=== PATIENT | male | born 1965 | race Caucasian/White ===

== ENCOUNTER 2018-02-21 10:38 | Outpatient (CLI) | payer OTHER | END 2018-02-21 10:39 | disposition critical access hospital (66) | LOC: EMS 10:38 | PROVIDERS: ATTEND Surgery | DX: R07.9 Chest pain, unspecified (principal); R06.02 Shortness of breath; R20.0 Anesthesia of skin; R42 Dizziness and giddiness; R11.0 Nausea | CPT/HCPCS: A0425; A0427 ==

== ENCOUNTER 2018-02-21 11:02 | Emergency (ER) | payer OTHER ==
[2018-02-21] MEDS ORDERED: MAG HYDROX/AL HYDROX/SIMETH 30 ML UDC PO STA (11:10)
[2018-02-21] MEDS ORDERED: LIDOCAINE VISCOUS 2% 15 ML UDC MM STA (11:10)
--- NOTE | 2018-02-21 11:14 | ED Physician Documentation ---
History of Present Illness - Stated complaint Stated Complaint: CP - Chief complaint Chief Complaint: Cardiac - Additonal information Additional information: hx from pt 52 male hx HTN diet and exercise controlled fhx CAD (dad) smoker walking dog this AM about 9 and developed chest pain that felt like severe heart burn with associated weakness nausea soa and diaphoresis sx subsided with asa and nitro X 1 from EMS but still with milder burning CP hx similar but milder sx with exertion as well has had EKG labs etc but not a stress test yet no travel no leg swelling no fever cough had diarrhea last night Review of Systems Constitutional: reports: Sweats. denies: Fever, Chills Throat: denies: Sore throat Cardiac: reports: Chest pain / pressure Respiratory: reports: Dyspnea GI: reports: Nausea Musculoskeletal: denies: Extremity swelling Endocrine: denies: Easy bruising / bleeding Immunocompromised: denies: Immunocompromised PD PAST MEDICAL HISTORY - Present Medications Home Medications: Ambulatory Orders Medication Instructions Recorded Confirmed No Known Home Medications [No 02/21/18 02/21/18 Known Home Medications] - Allergies Allergies/Adverse Reactions: Allergies Allergy/AdvReac Type Severity Reaction Status Date / Time No Known Drug Allergies Allergy Verified 02/21/18 11:07 PD ED PE NORMAL - Vitals Vital signs reviewed: Yes - General General: Alert and oriented X 3 - Neck Neck: Supple, no meningeal sign - Cardiac Cardiac: RRR - Respiratory Respiratory: No respiratory distress, Clear bilaterally - Abdomen Abdomen: Soft, Non tender - Extremities Extremities: No edema, No calf tenderness / cord - Neuro Neuro: Alert and oriented X 3 Results - Vitals Vitals: Vital Signs - 24 hr 02/21/18 02/21/18 02/21/18 11:04 12:29 12:45 Temperature 36.1 C L 36.5 C Heart Rate 54 L 69 50 L Respiratory 18 30 H 20 Rate Blood Pressure 108/84 H 104/77 117/83 H O2 Saturation 100 100 100 Oxygen O2 Source Nasal cannula - EKG (time done) 1115 Rate: Rate (enter#) (48) Rhythm: NSR [place]: Normal Intervals: Normal CT Ischemia: Normal ST segments 1225 Rate: Rate (enter#) (52) Rhythm: NSR Ischemia: Other (anterior STEMI and hyperacute T waves) Compare to prior EKG: Changed from prior EKG - Labs Labs: Laboratory Tests 02/21/18 02/21/18 02/21/18 11:17 11:17 11:17 WBC 10.3 RBC 4.65 L Hgb 14.3 Hct 42.3 MCV 90.9 MCH 30.8 MCHC 33.9 RDW 13.7 Plt Count 237 MPV 7.9 Neut # 6.5 Lymph # 2.4 [place] # 0.8 Eos # 0.6 Baso # 0.1 Absolute Nucleated RBC 0.00 Nucleated RBC % 0.0 Sodium 135 Potassium 4.1 Chloride 104 Carbon Dioxide 23 Anion Gap 8.0 BUN 9 Creatinine 0.8 Estimated GFR (MDRD) 102 Glucose 106 H Calcium 8.7 Total Bilirubin 0.4 AST 18 ALT 19 Alkaline Phosphatase 57 Troponin I < 0.04 Total Protein 6.4 L Albumin 4.0 Globulin 2.4 Albumin/Globulin Ratio 1.7 Lipase 20 L - Rads (name of study) CXR Radiology: See rad report (no acute process) PD MEDICAL DECISION MAKING - ED course ED course: 52 male with risk factors chest pain with walking dog this AM and milder sx with exertion recently received asa and nitro [employer] and had minimal pain upon arrival EKG # 1 and trop # 1 normal planned to admit for serial CE and echo and stress approx 1220 pt had recurrent pain SOA rpt EKG shows STEMI given another nitro morphine and heparin and stat transfer to [facility] for cath - accepting EMP is Dr Daphne Marrero note clock by nurses station is off so time on transfer forms is also off Departure - Departure Disposition: 02 Transfer Acute Care Hosp Clinical Impression: STEMI (ST elevation myocardial infarction) Qualifiers: Involved coronary artery: unspecified coronary artery Qualified Code(s): I21.3 - ST elevation (STEMI) myocardial infarction of unspecified site Condition: Critical Discharge Date/Time: 02/21/18 13:00
[2018-02-21 11:27] LABS: BASOPHILS # (AUTO) 0.1 10^3/uL (0.0-0.1); BASOPHILS % (AUTO) 0.8 %; EOSINOPHILS # (AUTO) 0.6 10^3/uL (0.0-0.7); EOSINOPHILS % (AUTO) 5.7 %; HGB - HEMOGLOBIN 14.3 g/dL (14.0-18.0); LYMPHOCYTES # (AUTO) 2.4 10^3/uL (1.5-3.5); LYMPHOCYTES % (AUTO) 23.2 %; MEAN CORPUSCULAR HEMOGLOBIN 30.8 pg (27.0-31.0); MEAN CORPUSCULAR HGB CONC 33.9 g/dL (32.0-36.0); MEAN CORPUSCULAR VOLUME 90.9 fL (80.0-94.0); MEAN PLATELET VOLUME 7.9 fL (7.4-11.4); MONOCYTES # (AUTO) 0.8 10^3/uL (0.0-1.0); MONOCYTES % (AUTO) 7.4 %; NEUTROPHILS # (AUTO) 6.5 10^3/uL (1.5-6.6); NEUTROPHILS % (AUTO) 62.9 %; PLT - PLATELET COUNT 237 10^3/uL (130-450); RED BLOOD COUNT 4.65 10^6/uL (4.70-6.10); RED CELL DISTRIBUTION WIDTH 13.7 % (12.0-15.0); WHITE BLOOD COUNT 10.3 x10^3/uL (4.8-10.8)
[2018-02-21 11:38] LABS: ALBUMIN/GLOBULIN RATIO 1.7 (1.0-2.2); BILIRUBIN,TOTAL 0.4 mg/dL (0.2-1.0); CALCIUM 8.7 mg/dL (8.5-10.3); CREATININE 0.8 mg/dL (0.6-1.2); TOTAL PROTEIN 6.4 g/dL (6.7-8.2)
--- NOTE | 2018-02-21 11:40 | XRAY Report ---
EXAM: CHEST RADIOGRAPHY EXAM DATE: 02/21/2018 11:34 AM. CLINICAL HISTORY: Altered mental status. COMPARISON: None. TECHNIQUE: 1 view. FINDINGS: Lungs/Pleura: No focal opacities evident. No pleural effusion. No pneumothorax. Mediastinum: Heart size is normal. Aorta is mildly tortuous. Other: None. IMPRESSION: 1. No acute disease in the chest. [facility] Referring Provider Line: [phone] SITE ID: [id number]
[2018-02-21] MEDS ORDERED: NITROGLYCERIN SL 0.4 MG TABLET SL STA (12:21)
[2018-02-21] MEDS ORDERED: MORPHINE 2 MG/ML SYRINGE IVP STA (12:26)
[2018-02-21] MEDS ORDERED: HEPARIN 25000UNITS/500ML (D5W) 25,000 UNIT/500 ML BAG IV STA (12:27)
[2018-02-21] MEDS ORDERED: HEPARIN 5,000 UNIT/ML VIAL IVP ONE (12:27)
[2018-02-21] MEDS ORDERED: ONDANSETRON 4 MG/2 ML VIAL IVP STA (12:28)
[2018-02-21 12:46] VITALS: BP 117/83
== END 2018-02-21 13:00 | disposition short-term general hospital (02) ==
LOC: EDBD → ED 11:02
DX: I21.3 ST elevation (STEMI) myocardial infarction of unspecified site (principal); I10 Essential (primary) hypertension; Z82.49 Family history of ischemic heart disease and other diseases of the circulatory system
CPT/HCPCS: 36415; 71045; 80053; 83690; 84484; 85025; 93005; 96374; 96375; 96376; 99284; A9270; J2270

== ENCOUNTER 2018-02-21 12:58 | Outpatient (CLI) | payer OTHER | END 2018-02-21 12:59 | disposition short-term general hospital (02) | LOC: EMS 12:58 | PROVIDERS: ATTEND Surgery | DX: R07.9 Chest pain, unspecified (principal) | CPT/HCPCS: A0425; A0427 ==

== ENCOUNTER 2018-08-21 09:12 | Outpatient (CLI) | payer OTHER ==
--- NOTE | 2018-08-21 15:25 | XRAY Report ---
Reason: OCCULT BLOOD IN STOOL Procedure Date: 08/21/2018 Accession Number: [id number] / [id number] Procedure: FL - Barium Enema w/Air CPT Code: FULL RESULT: EXAM: BARIUM ENEMA. EXAM DATE: 08/21/2018 11:28 AM. CLINICAL HISTORY: Occult blood in stool. COMPARISONS: None. TECHNIQUE: Routine double contrast barium enema. Fluoroscopy Time: 3 minutes 20 seconds. Number of Images: 26. FINDINGS: Morphology: Normal distention and anatomy by single contrast technique. Limited colonic visualization from the rectum to the cecum due to limited emptying of barium column necessitating evacuation of bowel with resultant underdistention of double contrast technique. Mucosa: Limited evaluation due to persistence of barium column as mentioned above. There is mild diverticulosis. No masses, or strictures. No filling defects evident. Terminal Ileum: Mild ileocecal reflux present. No mucosal abnormalities evident. Other: None. IMPRESSION: No significant mass is identified within the limitations of the study. Diverticulosis. [facility]
== END 2018-08-21 09:13 | disposition home or self-care (01) ==
LOC: DI 09:12
PROVIDERS: ATTEND Internal Medicine Gastroenterology
DX: K57.30 Diverticulosis of large intestine without perforation or abscess without bleeding (principal)
CPT/HCPCS: 74280

== ENCOUNTER 2019-02-12 12:43 | Emergency (ER) | payer OTHER ==
[2019-02-12] MEDS ORDERED: TETANUS/DIPHTHERIA/PERTUSSIS 0.5 ML SYRINGE IM ONE (13:16)
--- NOTE | 2019-02-12 13:16 | ED Physician Documentation ---
PD HPI UPPER EXT INJURY - Stated complaint Stated Complaint: LT MIDDLE FINGER CUT - Chief complaint Chief Complaint: Laceration - History obtained from History obtained from: Patient - History of Present Illness Location: Left (Slipped on a log and not sure exactly what he cut his finger on and has persistent bleeding. On antiplatelet therapy after [place] last year (?presume plavix, he does not remember though).) Review of Systems Constitutional: reports: Reviewed and negative Throat: reports: Reviewed and negative Cardiac: reports: Reviewed and negative PD PAST MEDICAL HISTORY - Past Medical History Psych: Post traumatic stress disorder - Past Surgical History Past Surgical History: No - Present Medications Home Medications: Ambulatory Orders Medication Instructions Recorded Confirmed No Known Home Medications 02/21/18 02/21/18 - Allergies Allergies/Adverse Reactions: Allergies Allergy/AdvReac Type Severity Reaction Status Date / Time No Known Drug Allergies Allergy Verified 02/12/19 13:01 - Social History Does the pt smoke?: Yes Smoking Status: Current every day smoker Does the pt drink ETOH?: No Does the pt have substance abuse?: Yes - Immunizations Immunizations are current?: Yes - POLST Patient has POLST: No PD ED PE NORMAL - Vitals Vital signs reviewed: Yes - General General: Alert and oriented X 3, No acute distress - Extremities Extremities: Other (There is a tiny linear wound on the pulp of the left middle finger without palpable foreign body. Its actively oozing blood but not pulsatile. Its right in the middle of the pulp. No tenderness.) - Neuro Neuro: Alert and oriented X 3, Normal speech Results - Vitals Vitals: Vital Signs - 24 hr 02/12/19 12:58 Temperature 37.1 C Heart Rate 64 Respiratory 20 Rate Blood Pressure 140/85 H O2 Saturation 97 Oxygen O2 Source Room air Procedures - Laceration (location) L middle finger Length in cm: 0.3 Wound type: Superficial Wound Preparation: Irrigated copiously NS Skin layer closure: Dermabond, Steri strips Other: Tetanus booster given Complexity: Simple Departure - Departure Disposition: 01 Home, Self Care Clinical Impression: Laceration Condition: Good Record reviewed to determine appropriate education?: Yes Instructions: ED Laceration Ext Skin Glue
[2019-02-12 13:43] VITALS: BP 126/79
== END 2019-02-12 13:43 | disposition home or self-care (01) ==
LOC: ED 12:43
DX: S61.213A Laceration without foreign body of left middle finger without damage to nail, initial encounter (principal); W45.8XXA Other foreign body or object entering through skin, initial encounter; W01.198A Fall on same level from slipping, tripping and stumbling with subsequent striking against other object, initial encounter; Z23 Encounter for immunization; F17.200 Nicotine dependence, unspecified, uncomplicated; I25.2 Old myocardial infarction; Z79.02 Long term (current) use of antithrombotics/antiplatelets
CPT/HCPCS: 12001; 90471; 99282; 99283

== ENCOUNTER 2019-08-09 14:15 | Outpatient (CLI) | payer OTHER ==
--- NOTE | 2019-08-11 13:57 | MRI Report ---
Reason: PAIN IN RIGHT SHOULDER Procedure Date: 08/09/2019 Accession Number: [id number] / [id number] Procedure: MRI - Shoulder RT W/O CPT Code: FULL RESULT: EXAM: RIGHT SHOULDER MRI WITHOUT CONTRAST EXAM DATE: 08/09/2019 03:34 PM. CLINICAL HISTORY: Pain in right shoulder. COMPARISON: SHOULDER 2 OR MORE VIEWS 06/21/2019 8:56 AM. TECHNIQUE: Multiplanar, multisequence T1-weighted and fluid-sensitive sequences of the shoulder without contrast. Other: None. FINDINGS: Acromioclavicular Region: The acromion is type II. There is thinning of the hyaline cartilage of the acromioclavicular joint with subchondral cyst formation and small osteophytes consistent with mild osteoarthritis. No subacromial/subdeltoid bursal fluid. Glenohumeral Region: There is subchondral edema and cyst formation in the inferior half of the bony glenoid. There is flattening of the underlying subchondral bone, suggestive of prior trauma. There is mild erosion of the glenohumeral cartilage. The findings are consistent with mild glenohumeral osteoarthritis. Bone Marrow: No fracture, marrow edema or bone lesions. Labrum: The labrum is unremarkable on this nonarthrographic study. Musculature/Rotator Cuff: There is thickening and increased T2 signal throughout supraspinatus consistent with moderate tendinosis. There is fraying of the humeral surface fibers of supraspinatus consistent with a low-grade partial-thickness tear. There is moderate infraspinatus tendinosis. There is moderate subscapularis tendinosis. There is no atrophy. Biceps Tendon: There is longitudinal splitting of the long head of biceps. Other: The subcutaneous tissues are unremarkable. IMPRESSION: 1. Mild acromioclavicular joint osteoarthritis. 2. Mild glenohumeral osteoarthritis. 3. Moderate supraspinatus tendinosis with low-grade partial-thickness tears. 4. Moderate infraspinatus tendinosis. 5. Moderate subscapularis tendinosis. 6. Partial-thickness tear of the long head of biceps. [facility]
== END 2019-08-09 14:16 | disposition home or self-care (01) ==
LOC: DI 14:15
PROVIDERS: ATTEND Orthopaedic Surgery Sports Medicine
DX: M19.011 Primary osteoarthritis, right shoulder (principal); M75.101 Unspecified rotator cuff tear or rupture of right shoulder, not specified as traumatic; S46.111A Strain of muscle, fascia and tendon of long head of biceps, right arm, initial encounter

== ENCOUNTER 2019-08-21 15:29 | Emergency (ER) | payer OTHER ==
[2019-08-21 15:36] VITALS: BP 134/85
--- NOTE | 2019-08-21 15:40 | ED Physician Documentation ---
History of Present Illness - Stated complaint Stated Complaint: LT SHOULDER PX - Chief complaint Chief Complaint: Ext Problem - Additonal information Additional information: G3-year-old male with a history of right shoulder pain chronically, presents with exacerbation of the pain. Today he was reaching forward to get a pill bottle and he had sudden pain in his right shoulder. He states that it is worse when he lifts the shoulder up to the level of his clavicles or beyond. He did not feel any pop, and he states that he is certain that the shoulder is not out of socket, as he has had dislocations before. He denies weakness or numbness in the arm, he does have some pain from his shoulders rating down to his bicep. He recently saw Dr. Austin and had an MRI of his shoulder which reportedly showed an abnormality with his bicep. Reviewing his records it appears he had a longitudinal split of the long head of his biceps tendon, as well as some rotator cuff tendinosis. Dr. Austin reportedly told him that he should undergo physical therapy, no plans of surgical intervention PD PAST MEDICAL HISTORY - Past Medical History Cardiovascular: [place] Respiratory: None Neuro: None Endocrine/Autoimmune: None GI: None : None HEENT: None Psych: Post traumatic stress disorder Musculoskeletal: None Derm: None - Past Surgical History Past Surgical History: No General: Other Ortho: ACL reconstruction, Other Cardiovascular: Coronary stent - Present Medications Home Medications: Ambulatory Orders Medication Instructions Recorded Confirmed Acetaminophen 650 mg PO Q6HR #30 tablet 08/21/19 Hydrocodone/Acetaminophen 1 - 2 each PO Q6H PRN #7 tablet 08/21/19 [Hydrocodon-Acetaminophen 5-325] - Allergies Allergies/Adverse Reactions: Allergies Allergy/AdvReac Type Severity Reaction Status Date / Time No Known Drug Allergies Allergy Verified 08/21/19 15:33 - Social History Does the pt smoke?: Yes Smoking Status: Current every day smoker Does the pt drink ETOH?: No Does the pt have substance abuse?: Yes - Immunizations Immunizations are current?: Yes - POLST Patient has POLST: No PD ED PE NORMAL - Vitals Vital signs reviewed: Yes - General General: Alert and oriented X 3 - HEENT HEENT: Atraumatic - Neck Neck: Supple, no meningeal sign - Cardiac Cardiac: RRR - Respiratory Respiratory: No respiratory distress - Extremities Extremities: No deformity, Other (Normal passive ROM, normal pulses and sensation over radial, ulnar, median, and axillary nerve distribution. Intact elbow flexion and extension, shoulder forward flexion and abduction also intact, though with some pain. Biceps tendon intact at the elbow.) - Neuro Neuro: Alert and oriented X 3 Results - Vitals Vitals: Oxygen O2 Source Room air PD MEDICAL DECISION MAKING - ED course Complexity details: considered differential (Strain, sprain, dislocation, biceps tendon injury) ED course: Patient presents with worsened chronic shoulder pain, he has intact ROM and no deformity on exam, no bony tenderness, and no signs of dislocation and patient states he is sure it isn't fractured or dislocated and declines XR today. Limb is neurovascularly intact. I reviewed his MRI, based on those results I think it is possible he worsened the injury to his proximal biceps tendon, or that he has a rotator cuff injury. I recommended supportive care, close follow up with his orthopedist, and return to the ED with worsening or new concerning symptoms. He agrees and was discharged home. Departure - Departure Disposition: Home, Self Care Clinical Impression: Shoulder pain, right Qualifiers: Chronicity: acute Qualified Code(s): M25.511 - Pain in right shoulder Condition: Good Follow-Up: Uday Austin MD [Provider Admit Priv/Credential] - Your,PCP [Other] Prescriptions: Acetaminophen 650 mg PO Q6HR #30 tablet Hydrocodone/Acetaminophen [Hydrocodon-Acetaminophen 5-325] 1 - 2 each PO Q6H PRN #7 tablet PRN Reason: pain Comments: You were seen today for pain in your shoulder. This may be inflammation or damage to your biceps tendon or the rotator cuff muscles. Please avoid any strenuous motion on the shoulder, try to control your pain using just your NSAIDs and your Tylenol, if this is not effective you may use the hydrocodone sparingly, but know that these medications can be sedating and can be constipating, and should not be used for long-term pain control. Please get in touch with Dr. Austin's office for follow-up visit, if you are having new or concerning symptoms return to the emergency department. Do not drink alcohol or drive while taking narcotic pain medication. Note that many narcotic pain relievers also contain Tylenol/acetaminophen. Please ensure that your total dose of acetaminophen from all sources does not exceed 3 g (3000 mg) per day. You may get constipated while on this medication. Take a stool softener such as Colace twice a day while you are on it. Also add an [id number] laxative such as senna or MiraLAX on any day that you do not have a bowel movement. If you received a narcotic pain medication or sedative while in the emergency department, do not drive for the next 24 hours. Discharge Date/Time: 08/21/19 16:58
[2019-08-21] MEDS ORDERED: METHOCARBAMOL 500 MG TABLET PO STA (16:10)
== END 2019-08-21 16:58 | disposition home or self-care (01) ==
LOC: ED 15:29
DX: M25.511 Pain in right shoulder (principal); I25.2 Old myocardial infarction; G89.29 Other chronic pain; Z95.5 Presence of coronary angioplasty implant and graft; F17.200 Nicotine dependence, unspecified, uncomplicated
CPT/HCPCS: 99281; 99282; A9270

== ENCOUNTER 2020-03-30 17:18 | Outpatient (CLI) | payer OTHER | END 2020-03-30 17:19 | disposition short-term general hospital (02) | LOC: EMS 17:18 | PROVIDERS: ATTEND Surgery | DX: R07.9 Chest pain, unspecified (principal) | CPT/HCPCS: A0425; A0427 ==

== ENCOUNTER 2022-05-05 02:19 | Emergency (ER) | payer OTHER ==
--- NOTE | 2022-05-05 02:24 | ED Physician Documentation ---
PD HPI ABD PAIN - Stated complaint Stated Complaint: ABD PAIN - History obtained from History obtained from: Patient - History of Present Illness Timing - onset: How many days ago (3) Timing - details: Abrupt onset, Intermittant Pain level max: 6 Pain level now: 1 Quality: Pain Location: LLQ Radiation: Other (radiates down LLE anterior thigh) Associated symptoms: No: Fever, Nausea, Vomiting, Hematemesis, Diarrhea, Constipation, Melena, Hematochezia, Dysuria, Hematuria, Chest pain Recently seen: Not recently seen - Additional information Additional information: c/o LLQ pain x 3 days which he says he thinks is "another one of my bowel obstructions" (per patient). Last BM was 2-3 days ago. Denies n/v. Review of Systems Constitutional: denies: Fever, Chills, Sweats Cardiac: reports: Reviewed and negative Respiratory: reports: Reviewed and negative GI: reports: Abdominal Pain. denies: Nausea, Vomiting, Constipation, Diarrhea, Hematemesis, Bloody / black stool : denies: Dysuria, Frequency, Testicular pain Skin: denies: Rash Musculoskeletal: reports: Reviewed and negative Neurologic: denies: Generalized weakness PD PAST MEDICAL HISTORY - Past Medical History Cardiovascular: [place] Respiratory: None Neuro: None Endocrine/Autoimmune: None GI: None : None HEENT: None Psych: Post traumatic stress disorder Musculoskeletal: None Derm: None - Past Surgical History Past Surgical History: No General: Other Ortho: ACL reconstruction, Other Cardiovascular: Coronary stent - Present Medications Home Medications: Ambulatory Orders Medication Instructions Recorded Confirmed Aspirin [[place]] 81 mg ORAL DAILY 05/05/22 05/05/22 Atorvastatin [Lipitor] 10 mg ORAL DAILY 05/05/22 05/05/22 Lisinopril [Zestril] 20 mg ORAL DAILY 05/05/22 05/05/22 - Allergies Allergies/Adverse Reactions: Allergies Allergy/AdvReac Type Severity Reaction Status Date / Time No Known Drug Allergies Allergy Verified 05/05/22 02:26 - Social History Does the pt smoke?: Yes Smoking Status: Current every day smoker Does the pt drink ETOH?: No Does the pt have substance abuse?: Yes - Immunizations Immunizations are current?: Yes - POLST Patient has POLST: No PD ED PE NORMAL - Vitals Vital signs reviewed: Yes - General General: Alert and oriented X 3, No acute distress, Well developed/nourished - Cardiac Cardiac: RRR, No murmur - Respiratory Respiratory: No respiratory distress, Clear bilaterally - Abdomen Abdomen: Normal bowel sounds, Soft, Non tender, Non distended - Back Back: No CVA TTP, No spinal TTP - Derm Derm: Normal color, Warm and dry - Extremities Extremities: No edema PD ED PE EXPANDED - Male Male : Normal Exam. No: Tenderness Results - Vitals Vitals: Oxygen O2 Source Room air - Labs Labs: Laboratory Tests 05/05/22 05/05/22 05/05/22 02:30 02:30 02:37 WBC 10.6 RBC 5.13 Hgb 16.5 Hct 49.0 MCV 95.5 H MCH 32.2 H MCHC 33.7 RDW 12.5 Plt Count 264 MPV 9.8 Neut # (Auto) Not Reportable Lymph # (Auto) Not Reportable [place] # (Auto) Not Reportable Eos # (Auto) Not Reportable Baso # (Auto) Not Reportable Absolute Nucleated RBC Not Reportable Total Counted 100 Band Neuts % (Manual) 0 Abnorm Lymph % (Manual) 0 Nucleated RBC % Not Reportable Neutrophils # (Manual) 4.8 Lymphocytes # (Manual) 4.9 H Monocytes # (Manual) 0.2 Eosinophils # (Manual) 0.7 Basophils # (Manual) 0.0 Differential Comment MANUAL DIFFERENTIAL WBC Morphology NORMAL APPEARANCE Platelet Estimate NORMAL (130-450,000) Platelet Morphology NORMAL APPEARANCE RBC Morph Micro Appear NORMAL APPEARANCE Sodium 140 Potassium 4.0 Chloride 104 Carbon Dioxide 28 Anion Gap 8.0 BUN 10 Creatinine 0.9 Estimated GFR (MDRD) 87 L Glucose 99 Calcium 9.5 Total Bilirubin 0.6 AST 23 ALT 36 Alkaline Phosphatase 51 Total Protein 7.0 Albumin 4.5 Globulin 2.5 Albumin/Globulin Ratio 1.8 Lipase 37 Urine Color YELLOW Urine Clarity CLEAR Urine pH 6.5 Ur Specific [place] 1.010 Urine Protein NEGATIVE Urine Glucose (UA) NEGATIVE Urine Ketones NEGATIVE Urine Occult Blood NEGATIVE Urine Nitrite NEGATIVE Urine Bilirubin NEGATIVE Urine Urobilinogen 0.2 (NORMAL) Ur Leukocyte Esterase NEGATIVE Ur Microscopic Review NOT INDICATED Urine Culture Comments NOT INDICATED - Rads (name of study) CT A/P with PO contrast Radiology: Prelim report reviewed, See rad report PD MEDICAL DECISION MAKING - ED course Complexity details: reviewed results, re-evaluated patient, considered differential, d/w patient ED course: Patient c/o episodic LLQ pain which he says feels similar to previous bowel obstructions. It is unclear to me if he has actually been diagnosed with bowel obstruction by a medical practitioner and, if so, based on suspicion of symptoms or else study(ies). He says there is some type of scarring at the junction of the sigmoid colon and rectum that causes obstructions. [place]'s CT A/P does not have any evidence of acute pathology including large or small bowel obstructions. His blood tests are all reassuring with no concerning findings. Unfortunately, he was very agitated during stay, wanting to leave to have a cigarette (refused any PO meds such as lorazepam or nicotine patches), flatly refusing to not be allowed to leave and have a cigarette. He returns to ED and then is demanding to leave despite it being explained to him multiple times by ED RN and myself that the CT reading still is not yet available. I had seen the CT images and I do not see any concerning pathology, but I emphasized the importance of awaiting the radiologist's reading to ensure no discrepancies. He did not want to wait and thus is discharged. He declined pain medication repeatedly. Several times he would point to his LLQ and tell me "I just need this thing cut out so I can feel better and go home", demonstrating a lack of understanding of the complexity of diagnosing and treating abdominal pain. Departure - Departure Disposition: 01 Home, Self Care Clinical Impression: Abdominal pain Qualifiers: Abdominal location: left lower quadrant Qualified Code(s): R10.32 - Left lower quadrant pain Condition: Good Instructions: ED Abdominal Pain Unkn Cause Male Follow-Up: SOPHIA MARR DO [Primary Care Provider] - Discharge Date/Time: 05/05/22 06:21
[2022-05-05 02:39] LABS: BASOPHILS % (AUTO) 1.3 %; EOSINOPHILS % (AUTO) 11.5 %; HGB - HEMOGLOBIN 16.5 g/dL (14.0-18.0); LYMPHOCYTES % (AUTO) 35.8 %; MEAN CORPUSCULAR HEMOGLOBIN 32.2 pg (27.0-31.0); MEAN CORPUSCULAR HGB CONC 33.7 g/dL (32.0-36.0); MEAN CORPUSCULAR VOLUME 95.5 fL (80.0-94.0); MEAN PLATELET VOLUME 9.8 fL (7.4-11.4); MONOCYTES % (AUTO) 7.7 %; NEUTROPHILS % (AUTO) 43.4 %; PLT - PLATELET COUNT 264 10^3/uL (130-450); RED BLOOD COUNT 5.13 10^6/uL (4.70-6.10); RED CELL DISTRIBUTION WIDTH 12.5 % (12.0-15.0); WHITE BLOOD COUNT 10.6 x10^3/uL (4.8-10.8)
[2022-05-05 02:46] LABS: ABNORMAL LYMPHS % (MANUAL) 0 %; BAND NEUTROPHILS % (MANUAL) 0 %
[2022-05-05 02:48] LABS: BILIRUBIN,URINE NEGATIVE (NEGATIVE); CLARITY,URINE CLEAR (CLEAR); GLUCOSE, URINE (UA) NEGATIVE (NEGATIVE); KETONES,URINE (UA) NEGATIVE (NEGATIVE); LEUKOCYTE ESTERASE, URINE NEGATIVE (NEGATIVE); NITRITE,URINE NEGATIVE (NEGATIVE); OCCULT BLOOD,URINE NEGATIVE (NEGATIVE); PH,URINE 6.5 PH (5.0-7.5); PROTEIN,URINE NEGATIVE (NEGATIVE); UROBILINOGEN,URINE 0.2 (NORMAL) E.U./dL (NORMAL)
[2022-05-05 02:54] LABS: ALBUMIN 4.5 g/dL (3.2-5.5); ALBUMIN/GLOBULIN RATIO 1.8 (1.0-2.2); BILIRUBIN,TOTAL 0.6 mg/dL (0.2-1.0); CALCIUM 9.5 mg/dL (8.5-10.3); CREATININE 0.9 mg/dL (0.6-1.2)
[2022-05-05 02:56] LABS: DIFFERENTIAL COMMENT MANUAL DIFFERENTIAL; EOSINOPHILS # (MANUAL) 0.7 10^3/uL (0-0.7); LYMPHOCYTES # (MANUAL) 4.9 10^3/uL (1.5-3.5); LYMPHOCYTES % (MANUAL) 46 %; MONOCYTES # (MANUAL) 0.2 10^3/uL (0.0-1.0); NEUTROPHILS # (MANUAL) 4.8 10^3/uL (1.5-6.6); PLATELET ESTIMATE, MANUAL NORMAL (130-450,000) (NORMAL); PLATELET MORPHOLOGY NORMAL APPEARANCE (NORMAL); RBC MORPHOLOGY (MULTIPLE) NORMAL APPEARANCE (NORMAL); WBC MORPHOLOGY (MULTIPLE) NORMAL APPEARANCE (NORMAL)
[2022-05-05] MEDS ORDERED: KETOROLAC 60 MG/2 ML VIAL IM STA (03:09)
[2022-05-05] MEDS ORDERED: KETOROLAC 30 MG/ML VIAL IVP STA (03:18)
[2022-05-05] MEDS ORDERED: DIATR MEGLU/DIATRIZOATE SODIUM 120 ML BOTTLE PO ONE (05:05)
[2022-05-05 06:26] VITALS: BP 164/91
--- NOTE | 2022-05-05 08:02 | CT Report ---
PROCEDURE: Abdomen/Pelvis WO INDICATIONS: LLQ abd. pain TECHNIQUE: Noncontrast 5 mm thick sections acquired from the diaphragms to the symphysis. 5 mm coronal and sagi ttal reformats were then performed. For radiation dose reduction, the following was used: automated exposure control, adjustment of mA and/or kV according to patient size. COMPARISON: None. FINDINGS: Image quality: Excellent. ABDOMEN: Lung bases: Dependent atelectasis at lung bases. Heart size is normal. Small hiatal hernia. Solid organs: Liver and spleen are normal in size. Gallbladder is normal. Pancreas is normal in co ntours. No adrenal nodules. Kidneys are normal in size, without hydronephrosis or nephrolithiasis. The renal pelvis and left kidney. Peritoneum and bowel: Unenhanced bowel loops demonstrate normal wall thickness and caliber. Moderat e amount stool in colon. Normal appendix. No free fluid or air. Nodes and vessels: No retroperitonealor mesenteric adenopathy by size criteria. There is a 1.3 cm m esenteric lymph node in the left abdomen. Aorta and inferior vena cava are normal in caliber. Modera te vascular calcifications. Miscellaneous: No ventral hernias. PELVIS: Genitourinary: Bladder wall thickness is normal. Miscellaneous: No inguinal hernias or adenopathy. Bones: No suspicious bony lesions. No vertebral body compression fractures. IMPRESSION: 1. No acute abnormalities in abdomen or pelvis. 2. Moderate amount of stool in colon. 3. Mildly enlarged mesenteric lymph node 1.3 cm. The findings nonspecific. Recommend clinical follow- up and imaging follow-up if clinically indicated. No significant discrepancy with the preliminary interpretation. Reviewed by: Candy Newton MD on 05/05/2022 8:00 AM PDT Approved by: Candy Newton MD on 05/05/2022 8:00 AM PDT Station ID: [id number]
== END 2022-05-05 06:21 | disposition home or self-care (01) ==
LOC: ED 02:19
DX: R10.32 Left lower quadrant pain (principal); F17.200 Nicotine dependence, unspecified, uncomplicated
CPT/HCPCS: 36415; 74176; 80053; 81003; 83690; 85025; 96374; 99282; 99284; Q9963; 81001; 87086